=== PATIENT | female | born 1980 | race Caucasian/White ===

== ENCOUNTER 2019-09-21 05:39 | Inpatient (IN) ==
--- NOTE | 2019-09-08 11:24 | History and Physical Report ---
DATE OF ADMISSION: 09/08/2019 CHIEF COMPLAINT: Intrauterine at term, 3 previous sections. HISTORY OF PRESENT ILLNESS: The patient is a 38-year-old 6, para 3. She has had 2 spontaneous ABs. General health is good. No drug allergies. has been well dated with a first trimester ultrasound. Her due date is 09/28/2019. She has a history of macrosomia with her previous pregnancies and her first was done for cephalopelvic disproportion. Obstetrical history is as follows: In 2009, she had a boy, 9 pounds 9 ounces at 42 weeks gestation. Arrest of labor, cephalopelvic disproportion. In 2011, she had a girl, 8 pounds 12 ounces at 39 weeks, repeat section. In 2015, boy, 7 pounds 9 ounces, repeat section at 39 weeks gestation, presently is being scheduled for repeat section at 39 weeks. PAST MEDICAL HISTORY: Three children in good health. ALLERGIES: No known drug allergies. PAST SURGICAL HISTORY: She has had 3 C-sections. She had her gallbladder removed. She had wisdom teeth. MEDICAL HISTORY: No history of rheumatic fever, heart disease, heart murmur, diabetes, tuberculosis. SOCIAL HISTORY: No smoking. No excessive alcohol intake. Works at home. FAMILY HISTORY: Mom is 77, has arthritis, questionable early dementia. Father from a fall at 78, he had severe Parkinson's disease. Four brothers, 1 brother is diabetic. REVIEW OF SYSTEMS: HEAD: No symptoms of frequent severe headaches. EYES: No symptoms of blurred vision, double vision. EARS: No symptoms of frequent ear infections, difficulty hearing. NOSE: No symptoms of frequent nosebleeds, difficulty breathing through her nose. THROAT: No symptoms of frequent or severe sore throat, difficulty swallowing. HEART: Had regular rhythm. S1, S2 are normal. LUNGS: Clear to auscultation and percussion. ABDOMEN: Soft and nontender. Estimated weight was well over 8 pounds. Well-healed Pfannenstiel scar. MUSCULOSKELETAL: Revealed no calf tenderness. PELVIC: Cervix was posterior, closed and firm, vertex presentation and floating. IMPRESSIONS OF THIS CASE: Status post cholecystectomy, status post wisdom teeth removal, status post 3 previous sections, macrosomia and repeat .
--- NOTE | 2019-09-14 14:40 | Anesthesiology Consultation ---
Date of Service September 14, 2019 Assessment & Plan (1) Encounter for pre-operative examination: - Repeat c/s: s/p c/s (2015, 2011, 2009). Patient reports poor pain control with spinal anesthesia for 2011 repeat c/s. Subsequently had c/s 04/07/16 at [facility]: SAB x 1 at L3-L4 Chart Review Chart Review: Acceptable Risk for Surgery (pending preop labs) and Patient seen in Pre Admission Testing Teaching & Discussion Pre-Anesthesia Teaching/Discussion Notes: Instructed NPO after midnight before surgery,except medications with 15 cc of water. Medication instructions provided according to the PAT guidelines. History Surgery Operation Date: 09/21/19 07:30 Proposed Procedures p Repeat Section in LD - Hal Martinez MD Height/Weight Height: 5 ft 3 in Weight: 95.4 kg Allergies Allergy/AdvReac Type Severity Reaction Status Date / Time No Known Allergies Allergy Unverified 09/10/19 10:24 Medications Home Medications Medication Instructions Recorded Confirmed Last Taken 1 tab PO DAILY 09/10/19 09/10/19 Unknown Past Medical History Medical History History of basal cell cancer s/p excision History of squamous cell carcinoma s/p excision Exercise / Class Metabolic Activity III < 4 Walking/Shop/Light housework Past Family History Family History Family/Other Family history of diabetes mellitus Brother Family history of diabetes mellitus Past Surgical History Surgical History History of basal cell carcinoma (BCC) excision History of section X3 History of cholecystectomy History of squamous cell carcinoma excision Past Anesthesia History Other 04/07/16 (repeat c/s): SAB x 1 at L3-L4 at [facility] (+ N/V)-- good pain control 2011 (repeat c/s)- "spinal" with poor pain control-- switched to [place] 2009 (2/2 macrosomia)- "spinal" History of PONV History of PONV and Hx of Motion Sickness Social History Smoking Status: Never smoker Do You Dip or Chew Tobacco: No Hx Alcohol Use: No Alcohol Intake Frequency Comment: NOT WHILE Hx Substance Use: No substance use type: does not use Review of Systems Patient denies chest pain, shortness of breath, reflux, cough, wheezing, palpitations. Physical Exam Vital Signs VITALS BP 115/76 P 90 TEMP 98.4 SP02 96%RA RESP 18 PHYSICAL Full neck and c-spine range of motion. Full TMJ range of motion. TMD 3 finger breaths Mallampati Score 2 Dentition: intact, molars with "repair" (patient unclear) Lungs: clear throughout to auscultation Cardiac: regular rate and rhythm, no murmurs noted Spine: normal Extremities: no edema
[2019-09-14 15:44] LABS: BUN Creatinine Ratio 11.5 (10-20); Basophils # (auto) 0.01 K/uL (0-0.2); Basophils % (auto) 0.1 %; Calcium 8.8 mg/dl (8.5-10.1); Creatinine Clr Calc Pharmacy 148.2 ml/min; Eosinophils # (auto) 0.07 K/uL (0-0.5); Eosinophils % (auto) 0.6 %; Est GFR (African American) 136.1; Est GFR (Non-African American) 117.5; Hematocrit (blood only) 35.4 % (37-47); Hemoglobin 12.1 g/dL (12.0-16.0); Immature Granulocytes # (auto) 0.06 K/uL (0.00-0.02); Immature Granulocytes % (auto) 0.5 %; Lymphocytes # (auto) 1.91 K/uL (1.2-3.4); Lymphocytes % (auto) 17.3 %; Mean Corpuscular Hemoglobin 31.8 pg (25-34); Mean Corpuscular Hgb Conc 34.2 g/dL (32-36); Mean Corpuscular Volume 92.9 fL (80-100); Mean Platelet Volume 9.3 fL (7.4-10.4); Monocytes # (auto) 0.95 K/uL (0.11-0.59); Monocytes % (auto) 8.6 %; Neutrophils # (auto) 8.07 K/uL (1.4-6.5); Neutrophils % (auto) 72.9 %; Platelet Count 251 K/uL (130-400); Potassium 3.9 mmol/L (3.5-5.1); RDW Coefficient of Variation 13.8 % (11.5-14.5); RDW Standard Deviation 46.1 fL (36.4-46.3); Red Blood Count 3.81 M/uL (4.2-5.4); White Blood Count 11.07 K/uL (4.8-10.8)
[2019-09-14 15:52] LABS: INR 0.9 (0.9-1.1); Partial Thromboplastin Ratio 0.9; Partial Thromboplastin Time 23.1 Seconds (21.0-31.0); Prothrombin Time 9.6 Seconds (9.0-12.0)
[2019-09-21] MEDS ORDERED: SODIUM CHLORIDE 0.9% 250 ML IV PRN (05:56)
[2019-09-21] MEDS ORDERED: LACTATED RINGER'S 1,000 ML IV SCH ×3 (06:00→09:00)
[2019-09-21] MEDS ORDERED: CITRIC ACID/SODIUM CITRATE 15 ML UDC PO SCH ×2 (06:00)
[2019-09-21] MEDS ORDERED: cefOXitin 2,000 MG in DEXTROSE 5% 50 ML IV SCH (06:00)
[2019-09-21 06:19] LABS: Basophils # (auto) 0.01 K/uL (0-0.2); Basophils % (auto) 0.1 %; Eosinophils # (auto) 0.09 K/uL (0-0.5); Eosinophils % (auto) 0.8 %; Hematocrit (blood only) 34.5 % (37-47); Hemoglobin 11.9 g/dL (12.0-16.0); Immature Granulocytes # (auto) 0.07 K/uL (0.00-0.02); Immature Granulocytes % (auto) 0.6 %; Lymphocytes # (auto) 2.14 K/uL (1.2-3.4); Lymphocytes % (auto) 18.7 %; Mean Corpuscular Hemoglobin 31.7 pg (25-34); Mean Platelet Volume 9.3 fL (7.4-10.4); Monocytes # (auto) 1.12 K/uL (0.11-0.59); Monocytes % (auto) 9.8 %; Neutrophils # (auto) 8.04 K/uL (1.4-6.5); Platelet Count 229 K/uL (130-400); RDW Coefficient of Variation 13.7 % (11.5-14.5); RDW Standard Deviation 45.6 fL (36.4-46.3); Red Blood Count 3.75 M/uL (4.2-5.4); White Blood Count 11.47 K/uL (4.8-10.8)
[2019-09-21 06:27] LABS: Mean Corpuscular Hgb Conc 34.5 g/dL (32-36)
[2019-09-21 06:34] LABS: Partial Thromboplastin Ratio 0.8; Prothrombin Time 9.8 Seconds (9.0-12.0)
[2019-09-21 06:35] LABS: BUN Creatinine Ratio 11.7 (10-20); Calcium 8.8 mg/dl (8.5-10.1); Creatinine Clr Calc Pharmacy 155.5 ml/min; Est GFR (African American) 139.5; Est GFR (Non-African American) 120.4; Potassium 3.6 mmol/L (3.5-5.1)
[2019-09-21] MEDS: LACTATED RINGER'S 1,000 ML IV SCH ×2 (06:59→17:10)
--- NOTE | 2019-09-21 07:37 | History & Physical Bridge Note ---
Date of Service September 21, 2019 History & Physical Bridge Note I have examined the patient, reviewed the History & Physical and in the interval since the performance of the History & Physical I have noted the following changes of clinical significance: no changes noted
[2019-09-21] MEDS ORDERED: OXYTOCIN 10 UNITS/ML VIAL ONE ×3 (07:40→08:15)
[2019-09-21] MEDS ORDERED: MoRPHine SULFATE PF 1 MG/ML 10 ML AMP/VIAL ONE (07:40)
[2019-09-21] MEDS ORDERED: fentaNYL citrate 100 MCG/2 ML VIAL ONE (07:40)
[2019-09-21] MEDS ORDERED: NALOXONE HCL 1 MG in SODIUM CHLORIDE 0.9% 1000ML 1,000 ML IV PRN (07:58)
[2019-09-21] MEDS ORDERED: DiphenhydrAMINE HCL 50 MG/ML VIAL IV PRN (07:58)
[2019-09-21] MEDS ORDERED: NALBUPHINE HCL INJ 10 MG/ML AMP IV PRN (07:58)
[2019-09-21] MEDS ORDERED: ePHEDrine sulfate 50 MG/ML AMP IV PRN (07:58)
[2019-09-21] MEDS ORDERED: KETOROLAC 30 MG/ML VIAL IV PRN (07:58)
[2019-09-21] MEDS ORDERED: MoRPHine SULFATE 2 MG/ML CARP IV PRN (07:58)
[2019-09-21] MEDS ORDERED: LACTATED RINGER'S 500 ML IV PRN (07:58)
[2019-09-21] MEDS ORDERED: ONDANSETRON INJ 2 MG/ML 2 ML VIAL IV PRN (07:58)
[2019-09-21] MEDS ORDERED: MoRPHine SULFATE PF 1 MG/ML 10 ML AMP/VIAL INT SPINAL ONE (07:58)
[2019-09-21] MEDS ORDERED: NALOXONE HCL 0.4 MG/1 ML VIAL/CARP IV PRN (07:58)
[2019-09-21] MEDS ORDERED: PROMETHAZINE HCL 25 MG in SODIUM CHLORIDE 0.9% 50 ML IV PRN ×2 (07:58→08:53)
[2019-09-21] MEDS ORDERED: NALOXONE HCL 0.08 MG in SYRINGE 1.8 ML IV PRN (07:58)
[2019-09-21] MEDS ORDERED: HYDROmorphone INJ 0.5 MG/0.5 ML SYR IV PRN (07:58)
[2019-09-21] MEDS ORDERED: SODIUM CHLORIDE 0.9% 1000ML 1,000 ML IV SCH (08:00)
[2019-09-21] MEDS ORDERED: NO NARCOTICS OR SEDATIVES SCH (08:00)
[2019-09-21] MEDS ORDERED: ePHEDrine sulfate 50 MG/ML SYR ONE (08:00)
[2019-09-21] MEDS ORDERED: DC INTRASPINAL MORPHINE SCH (08:00)
[2019-09-21] MEDS ORDERED: PHENYLEPHRINE 100MCG/ML 5ML SYR ONE (08:03)
[2019-09-21] MEDS ORDERED: ONDANSETRON INJ 2 MG/ML 2 ML VIAL ONE (08:17)
[2019-09-21] MEDS ORDERED: DIPHTHERIA/TETANUS/PERTUSSIS 0.5 ML SYR/VIAL IM ONE (08:53)
[2019-09-21] MEDS ORDERED: SUPERCREAM 0.870% 15 GM JAR EXT PRN (08:53)
[2019-09-21] MEDS ORDERED: SENNA 8.6 MG TAB PO PRN (08:53)
[2019-09-21] MEDS ORDERED: BENZOCAINE 20% AER SPR 82.5 GM CAN EXT PRN (08:53)
[2019-09-21] MEDS ORDERED: HYDROCORTISONE ACETATE 25 MG SUPP PR PRN (08:53)
[2019-09-21] MEDS ORDERED: MAGNESIUM HYDROXIDE SUSP 30 ML UDC PO PRN (08:53)
--- NOTE | 2019-09-21 08:53 | Post Operative Brief Note ---
Immediate Post Op Note v1 Date of Surgery September 21, 2019 Pre & Post Diagnosis Operation Date: 09/21/19 07:30 Pre-Op Diagnosis: 1. Previous x 3 2. Term Post-Op Diagnosis: Same I identified the patient and participated in the time-out.: Yes Procedure Operation Date: 09/21/19 07:30 Actual Procedures p Section in LD; Repeat Caesarean Section for the of a viable female infant at 0814.(Bilateral) - Hal Martinez MD Surgeon Hal Martinez MD [facility] Estimated Blood Loss 500 Findings Consistent with Post-Op Diagnosis Specimens 1200 ml Drains Nicolas Catheter (Nicolas inserted without difficulty. Patent and draining clear yellow urine. ) Anesthesia Type Spinal Complications none Disposition Accompanied Patient To Recovery: No Disposition: Recovery Room
[2019-09-21] MEDS ORDERED: OXYTOCIN 10 UNITS/ML VIAL IM ONE (09:29)
--- NOTE | 2019-09-21 10:32 | Operative Report ---
DATE OF OPERATION: 09/21/2019 PROCEDURE: Repeat section. INDICATIONS FOR SURGERY: Three previous sections, intrauterine , 39+ weeks gestation. PREOPERATIVE DIAGNOSES: Term , 3 previous C-sections. POSTOPERATIVE DIAGNOSES: Term , 3 previous C-sections. Delivered a live female infant. SURGEON: Billy Martinez MD SALES AND DISTRIBUTION CLERK: Israel Valencia MD ESTIMATED BLOOD LOSS: 500 mL. ANESTHESIA: Spinal. OPERATIVE FINDINGS AND PROCEDURE: The patient was brought to the OR table, correctly identified by armband and conversation. Spinal anesthesia was administered. Lower abdomen was painted with an alcohol-based sterilizing solution. Nicolas catheter was inserted aseptically in the bladder, connected to gravity drainage. Compression stockings were applied. Lower abdomen was painted with an alcohol based sterilizing solution, then draped in the usual sterile fashion. Timeout was called. The anesthesia was checked and found to be adequate. Then a Pfannenstiel incision was made through a previous scar, was carried down to the anterior fascia by sharp dissection. Fascia was incised transversely, from the underlying muscle by blunt and sharp dissection. Recti muscles were in the midline, exposed the peritoneum which was carefully raised and entered. Exposed the lower uterine segment. Incision was made above the vesicouterine fold. Bladder was undermined bluntly and pushed out of the operative field. Lower uterine segment was entered first with a knife and then laterally with the fingers. Clear amniotic fluid was seen at this time. A vectis retractor was applied to the head. With fundal pressure, the head was delivered, then the shoulders were delivered. was suctioned through the mouth and the nose. breathed and cried spontaneously, was attended to by the terminal press operator who was present and scrubbed at the time of delivery. Following this, cord was clamped and cut, cord blood was taken. Placenta was removed manually. Uterus, tubes, and ovaries were brought out through the incision. Uterine cavity was cleansed with a clean sponge. Ten units of Pitocin was injected into the myometrium. Then the myometrium was approximated with continuous chromic gut suture. Parts of the lower uterine segment were thin. The lower uterine segment was identified and then bolstered by bringing firm tissue together. A second layer was placed over the myometrial layer with chromic and these stitches were placed in a horizontal fashion and then we used about 4 [id number] sutures of Vicryl to complete the approximation. Following this, hemostasis was excellent. We restored the bladder flap with a continuous 3-0 chromic. Tubes and ovaries were inspected and found to be normal. Cul-de-sac was free of any blood clots and debris. Pelvis was washed clean. Uterus, tubes, and ovaries were reinserted into the abdominal cavity. Peritoneum was closed with a mattress suture of chromic catgut. Recti muscles were approximated with interrupted [id number] suture of chromic catgut. The fascia was closed with continuous interlocking suture of Vicryl on each side, tied in the midline. SubQ was approximated with a running plain. The skin edges were approximated with staple clips. I attest to the content of the Intraoperative Record and any orders documented therein. Any exceptions are noted below. MTDD
--- NOTE | 2019-09-21 11:12 | Anesthesiology Progress Note ---
Date of Service September 21, 2019 Anesthesia Post Procedure Vital Signs Vital Signs: Temp Pulse Resp BP Pulse Ox 09/21/19 11:10 69 113/58 L 09/21/19 11:09 72 98 09/21/19 11:04 68 97 09/21/19 11:00 74 124/67 09/21/19 10:59 77 98 09/21/19 10:54 71 98 09/21/19 10:50 72 136/66 09/21/19 10:49 76 96 09/21/19 10:44 84 98 09/21/19 10:40 71 95/58 L 09/21/19 10:39 74 97 09/21/19 10:34 83 97 09/21/19 10:30 68 109/59 L 09/21/19 10:29 70 97 09/21/19 10:24 79 98 09/21/19 10:20 71 113/59 L 09/21/19 10:19 74 97 09/21/19 10:14 81 97 09/21/19 10:10 71 108/57 L 09/21/19 10:09 68 95 09/21/19 10:04 72 95 09/21/19 10:00 74 111/57 L 09/21/19 09:59 68 96 09/21/19 09:55 73 20 93 09/21/19 09:54 70 95 09/21/19 09:50 63 107/58 L 09/21/19 09:49 75 97 09/21/19 09:45 20 09/21/19 09:44 73 96 09/21/19 09:43 69 94 09/21/19 09:40 77 108/58 L 09/21/19 09:39 76 96 09/21/19 09:36 76 94 09/21/19 09:35 20 09/21/19 09:34 71 97 09/21/19 09:30 74 110/58 L 09/21/19 09:29 79 94 09/21/19 09:25 22 09/21/19 09:24 90 98 09/21/19 09:20 75 107/59 L 09/21/19 09:19 80 93 09/21/19 09:15 22 09/21/19 09:14 78 98 09/21/19 09:11 81 113/64 09/21/19 09:09 74 97 09/21/19 09:05 20 09/21/19 09:04 69 98 09/21/19 09:00 80 106/57 L 09/21/19 08:59 84 99 09/21/19 08:55 36.9 C 22 09/21/19 07:38 92 H 99 09/21/19 07:33 87 98 09/21/19 06:24 78 123/71 09/21/19 05:57 36.6 C 18 09/21/19 05:56 94 H 144/83 H Transfer of Care Handoff Completed per policy Notes Mental Status: alert / awake / arousable Patient Amnestic to Procedure: Yes Nausea / Vomiting: adequately controlled Pain: adequately controlled Airway Patency, RR, SpO2: stable & adequate BP & HR: stable & adequate Hydration State: stable & adequate Neuraxial Anesthesia: was administered and sensory block is resolving Anesthetic Complications: no major complications apparent and Pt Satisfied with anesthetic care
[2019-09-21] MEDS: OXYTOCIN 20 UNITS in LACTATED RINGER'S 1,000 ML IV SCH ×2 (12:22→19:41)
[2019-09-21] MEDS: SIMETHICONE 80 MG CHEW PO SCH ×3 (15:25→19:42)
[2019-09-21] MEDS: DOCUSATE SODIUM 100 MG CAP PO SCH (21:49)
[2019-09-22] MEDS ORDERED: KETOROLAC 30 MG/ML VIAL IV PRN (01:59)
[2019-09-22] MEDS ORDERED: DiphenhydrAMINE HCL 50 MG/ML VIAL IV PRN (01:59)
[2019-09-22] MEDS ORDERED: ZOLPIDEM TARTRATE 5 MG TAB PO PRN (01:59)
[2019-09-22] MEDS ORDERED: MEPERIDINE HCL 50 MG/ML CARP IV PRN (01:59)
[2019-09-22] MEDS ORDERED: ONDANSETRON INJ 2 MG/ML 2 ML VIAL IV PRN (01:59)
[2019-09-22 06:33] LABS: Basophils # (auto) 0.02 K/uL (0-0.2); Basophils % (auto) 0.2 %; Eosinophils # (auto) 0.12 K/uL (0-0.5); Hematocrit (blood only) 29.8 % (37-47); Hemoglobin 10.4 g/dL (12.0-16.0); Immature Granulocytes # (auto) 0.06 K/uL (0.00-0.02); Immature Granulocytes % (auto) 0.5 %; Lymphocytes # (auto) 2.13 K/uL (1.2-3.4); Mean Corpuscular Hemoglobin 32.4 pg (25-34); Mean Corpuscular Hgb Conc 34.9 g/dL (32-36); Mean Corpuscular Volume 92.8 fL (80-100); Mean Platelet Volume 8.9 fL (7.4-10.4); Monocytes # (auto) 1.11 K/uL (0.11-0.59); Monocytes % (auto) 9.4 %; Neutrophils # (auto) 8.37 K/uL (1.4-6.5); Neutrophils % (auto) 70.9 %; Platelet Count 185 K/uL (130-400); RDW Coefficient of Variation 14.1 % (11.5-14.5); RDW Standard Deviation 47.8 fL (36.4-46.3); Red Blood Count 3.21 M/uL (4.2-5.4); White Blood Count 11.81 K/uL (4.8-10.8)
[2019-09-22] MEDS: SIMETHICONE 80 MG CHEW PO SCH ×4 (07:58→21:00)
[2019-09-22] MEDS: DOCUSATE SODIUM 100 MG CAP PO SCH ×2 (07:58→21:00)
[2019-09-22] MEDS: FERROUS SULFATE 325 MG TAB PO SCH (07:58)
[2019-09-22] MEDS: OXYCODONE/ACETAMINOPHEN 5mg/325mg TAB PO PRN ×5 (07:58→23:56)
[2019-09-22] MEDS: PRENATAL VITAMIN 1 TAB PO SCH (07:58)
--- NOTE | 2019-09-22 09:15 | Obstetrical Progress Note ---
Date of Service September 22, 2019 Physical Exam Physical Exam: abdomen soft and non tender bandage removed incision is clean and dry no calf tenderness vaginal bleeding scant ambulating well Results & Data Vital Signs (Past 12 Hours) Vital Signs Temp Pulse Resp BP Pulse Ox 09/22/19 03:30 36.6 C 88 18 106/65 97 09/22/19 02:10 18 98 09/22/19 01:09 16 94 09/22/19 00:10 36.7 C 77 16 100/62 96 09/21/19 23:20 17 93 09/21/19 22:19 18 98 09/21/19 21:20 18 98
[2019-09-22] MEDS: IBUPROFEN 600 MG TAB PO PRN ×4 (11:44→23:56)
[2019-09-22] MEDS ORDERED: bisacodyL 5 MG TABEC PO SCH (20:00)
[2019-09-23] MEDS: OXYCODONE/ACETAMINOPHEN 5mg/325mg TAB PO PRN ×5 (05:02→20:32)
[2019-09-23] MEDS: IBUPROFEN 600 MG TAB PO PRN ×5 (05:02→20:32)
[2019-09-23 06:33] LABS: Hematocrit (blood only) 30.4 % (37-47); Hemoglobin 10.4 g/dL (12.0-16.0)
[2019-09-23] MEDS: DOCUSATE SODIUM 100 MG CAP PO SCH ×2 (07:55→20:29)
[2019-09-23] MEDS: SIMETHICONE 80 MG CHEW PO SCH ×4 (07:55→20:30)
[2019-09-23] MEDS: PRENATAL VITAMIN 1 TAB PO SCH (07:55)
[2019-09-23] MEDS: FERROUS SULFATE 325 MG TAB PO SCH (07:55)
[2019-09-23] MEDS ORDERED: bisacodyL 10 MG SUPP PR PRN (08:53)
--- NOTE | 2019-09-23 08:59 | Obstetrical Progress Note ---
Date of Service September 23, 2019 Physical Exam Physical Exam: abdomen soft and non tender vaginal bleeding scant to moderate no calf tenderness incision is clean and dry Results & Data Vital Signs (Past 12 Hours) Vital Signs Temp Pulse Resp BP Pulse Ox 09/22/19 23:25 36.9 C 70 16 120/77 96
[2019-09-24] MEDS: OXYCODONE/ACETAMINOPHEN 5mg/325mg TAB PO PRN ×3 (00:39→08:18)
[2019-09-24] MEDS: IBUPROFEN 600 MG TAB PO PRN ×3 (00:41→08:18)
[2019-09-24] MEDS: DOCUSATE SODIUM 100 MG CAP PO SCH (08:18)
[2019-09-24] MEDS: SIMETHICONE 80 MG CHEW PO SCH (08:18)
[2019-09-24] MEDS: FERROUS SULFATE 325 MG TAB PO SCH (08:18)
[2019-09-24] MEDS: PRENATAL VITAMIN 1 TAB PO SCH (08:18)
[2019-09-24 08:40] VITALS: BP 118/73; PULSE 67; TEMP 97.9; O2SAT 96
--- NOTE | 2019-09-24 09:31 | Obstetrical Progress Note ---
Date of Service September 24, 2019 Physical Exam Physical Exam: abdomen soft and non tender vaginal bleeding scant to moderate incision is clean and dry no calf tenderness ambulating well Results & Data Vital Signs (Past 12 Hours) Vital Signs Temp Pulse Resp BP Pulse Ox 09/24/19 07:30 36.6 C 67 16 118/73 96 09/23/19 23:35 36.3 C L 77 16 120/74 97
--- NOTE | 2019-09-24 09:58 | Discharge Summary ---
Dayanna Cerda was a 4, para 4. She has had 3 previous sections. She was admitted at 39 weeks for repeat section. Preoperative hemoglobin was 11.9. Postoperatively, hemoglobin fell to 10.4. The patient was brought in at 39 weeks, given spinal anesthesia, underwent repeat low segment section. Bleeding was minimal. Postoperatively, she did well. Bowel sounds returned within 24 hours. As previously stated, hemoglobin went from 12 to 10.4. Incision remained clean and dry. She remained afebrile. At the time of discharge, she was ambulating well, eating well. Pain was well controlled with oral medications. She was given instructions to call the office for removal of sapna and told to continue to take vitamin every day that she was .
== END 2019-09-24 13:04 | disposition home or self-care (01) | DRG 788 ==
LOC: 4S1 05:39 → EDSTATUS 07:30 → 4S2 13:06